=== PATIENT | female | born 1950 | race Caucasian/White ===

== ENCOUNTER 2019-11-01 11:42 | Emergency (ER) | payer MEDICARE, OTHER ==
[2019-11-01] MEDS: Albuterol/Ipratropium 3.0-0.5 MG/3 ML Neb Soln NEB ONE (11:53)
[2019-11-01 11:58] VITALS: BP 147/81
--- NOTE | 2019-11-01 12:12 | EDM.PDOC ---
ED HPI GENERAL MEDICAL PROBLEM - General Chief Complaint: General Stated Complaint: shortness of breath Time Seen by Provider: 11/01/19 12:02 Source of Information: Reports: Patient History Limitations: Reports: No Limitations - History of Present Illness INITIAL COMMENTS - FREE TEXT/NARRATIVE: Patient presents with dyspnea and wheezing. She has asthma and COPD and generally gets exacerbations any time she gets any cough or cold. She has DuoNeb at home and used it 4 times this morning. When she sees her PCP for exacerbations she is usually put on a short course of prednisone. She also had a refill on a Z-pack so she got one of those started yesterday at 1700. - Related Data Allergies Allergy/AdvReac Type Severity Reaction Status Date / Time codeine Allergy Giddiness Verified 11/01/19 11:58 propoxyphene HCl Allergy Cannot Verified 11/01/19 11:58 [From [place]] Remember Home Meds: Home Meds Modafinil [Provigil] 200 mg PO DAILY 10/10/14 [History] Albuterol/Ipratropium [DuoNeb 3.0-0.5 MG/3 ML] 3 ml NEB Q6HRRT PRN #60 neb 10/14 [Rx] Albuterol [Ventolin HFA] 2 puff INH Q4H PRN 11/01/19 [History] Denosumab [Prolia] 60 mg SUBCUT ASDIRECTED 11/01/19 [History] Fluticasone/Salmeterol [Advair 250-50 Diskus] 1 inh INH BID 11/01/19 [History] ED ROS GENERAL - Review of Systems Review Of Systems: See Below Constitutional: Denies: Fever, Chills, Malaise, Weakness HEENT: Denies: Ear Pain, Throat Pain, Throat Swelling, Vision Change Respiratory: Reports: Shortness of Breath, Wheezing, Cough Cardiovascular: Denies: Chest Pain, Lightheadedness, Syncope Endocrine: Denies: Fatigue GI/Abdominal: Denies: Abdominal Pain, Vomiting Musculoskeletal: Denies: Neck Pain, Shoulder Pain, Arm Pain, Back Pain, Hand Pain Skin: Denies: Cyanosis, Jaundice, Mottled, Pallor, Diaphoresis Neurological: Denies: Confusion, Dizziness, Headache, Seizure, Syncope, Trouble Speaking, Difficulty Walking Psychiatric: Denies: Agitation, Anxiety, Confusion ED EXAM, GENERAL - Physical Exam Exam: See Below Exam Limited By: No Limitations General Appearance: Alert, WD/WN, No Apparent Distress Eye Exam: Bilateral Eye: EOMI, Normal Inspection, PERRL Ears: Normal External Exam, Hearing Grossly Normal Nose: Normal Inspection, No Blood Throat/Mouth: Normal Inspection, Normal Lips, Normal Voice, No Airway Compromise Head: Atraumatic, Normocephalic Neck: Normal Inspection, Full Range of Motion Respiratory/Chest: No Accessory Muscle Use, Wheezing (some better after duoneb but still present in upper chest). No: Crackles, Rhonchi, Stridor Cardiovascular: Regular Rate, Rhythm, No Murmur GI/Abdominal: Soft, Non-Tender Back Exam: Normal Inspection, Full Range of Motion. No: CVA Tenderness (L), CVA Tenderness (R) Extremities: Normal Inspection, Normal Range of Motion Neurological: Alert, Oriented, Normal Cognition, No Motor/Sensory Deficits Psychiatric: Normal Affect, Normal Mood Skin Exam: Warm, Dry, Intact, Normal Color, No Rash Course - Vital Signs Last Recorded V/S: Last Vital Signs Temp 97.8 F 11/01/19 11:50 Pulse 94 11/01/19 12:27 Resp 26 H 11/01/19 11:50 BP 147/81 H 11/01/19 11:50 Pulse Ox 89 L 11/01/19 11:50 - Orders/Labs/Meds Orders: Active Orders 24 hr Category Date Time Status RT Aerosol Therapy [RC] ASDIRECTED Care 11/01/19 11:46 Active Meds: Medications Discontinued Medications Generic Name Dose Route Start Last Admin Trade Name Santiago PRN Reason Stop Dose Admin Albuterol/Ipratropium 3 ml 11/01/19 11:46 11/01/19 11:53 Duoneb 3.0-0.5 Mg/3 Ml NEB 11/01/19 11:47 3 ml ONETIME ONE Administration Methylprednisolone Sodium Succinate 125 mg 11/01/19 12:06 11/01/19 12:19 Solu-Medrol IM 11/01/19 12:07 125 mg ONETIME ONE Administration - Re-Assessments/Exams Free Text/Narrative Re-Assessment/Exam: 11/01/19 12:20 O2 sats are 89% after the duoneb but will have patient remove the paper mask and see if it improves. She feels much better and clinically is significantly better also. Pt says she thinks she is normally in the 90's when doing well. CXR shows no acute changes. Gave Solumedrol 125 mg IM. 11/01/19 12:34 CXR report is negative for pneumonia but shows COPD with a few scattered areas of scarring. Re-auscultation reveals fair air movement with no wheezing or crackles. Sats still in upper 80's. Will give her some oxygen while we wait for the Solu-medrol to take effect. 11/01/19 16:01 We put oxygen on for awhile with sats in mid to upper 90's. After removing oxygen sats dropped to 89-93%. I discussed with patient that we should admit her with supplemental oxygen until she can maintain on RA. Her has arrived now and they tell me that they have oxygen in their home from his mother who had COPD and lived with them for 7 years. They also have access to an oximeter. She does not want to be in the hospital. We discussed that she shouldn't set the oxygen level too high (not over 2 liters) or she could retain CO2. Her is a dentist and they appear to be able to meet her needs so this seems to be a reasonable option for the next couple days until she can get in to the clinic for further evaluation. Patient is stable at discharge. Departure - Departure Time of Disposition: 15:51 Disposition: Home, Self-Care 01 Condition: Good Clinical Impression: Asthma exacerbation in COPD, Hypoxemia - Discharge Information Forms: ED Department Discharge Additional Instructions: 1. Continue the DuoNebs as directed. 2. Continue the Z-pack course and take the prednisone as directed. 3. Use your home oxygen to maintain oxygen saturation from 94-99% ideally. 4. Follow up with PCP on Sunday for recheck and evaluation. 5. Return to ER as needed. Sepsis Event Note - Evaluation Sepsis Screening Result: No Definite Risk - Focused Exam Vital Signs: Vital Signs Temp Pulse Resp BP Pulse Ox 11/01/19 12:27 94 11/01/19 11:50 97.8 F 104 H 26 H 147/81 H 89 L Date Exam was Performed: 11/01/19 Time Exam was Performed: 15:51 - My Orders Last 24 Hours: My Active Orders 11/01/19 11:46 RT Aerosol Therapy [RC] ASDIRECTED - Assessment/Plan Last 24 Hours: My Active Orders 11/01/19 11:46 RT Aerosol Therapy [RC] ASDIRECTED
[2019-11-01] MEDS: methylPREDNISolone Sodium Succinate 125 MG/2 ML SDV IM ONE (12:19)
--- NOTE | 2019-11-01 12:26 | CR ---
[id number] RAD/RAD Chest PA And Lateral EXAM: RAD Chest PA And Lateral INDICATION: COUGH. COMPARISON: Radiograph from September 2014. CT from December 2013. DISCUSSION: Cardiomediastinal silhouette is normal in size and contour. Chronic obstructive pulmonary disease with few scattered areas of scarring. No infiltrate, effusion, pneumothorax, or edema. IMPRESSION: Negative for pneumonia or other acute cardiopulmonary findings. Rakan Guy MD 11/01/19 [id number] Thank you for allowing us to participate in the care of your patient.
[2019-11-01 12:36] VITALS: PULSE 94
[2019-11-01] MEDS: predniSONE 20 MG Tab PO ONE (16:15)
[2019-11-02] MEDS ORDERED: predniSONE 20 MG Tab PO SCH (08:00)
== END 2019-11-01 16:40 | disposition home or self-care (01) ==
LOC: KA.ED 11:42
DX: J44.9 Chronic obstructive pulmonary disease, unspecified (principal); J45.901 Unspecified asthma with (acute) exacerbation; Z88.5 Allergy status to narcotic agent; Z88.8 Allergy status to other drugs, medicaments and biological substances
CPT/HCPCS: 71046; 94640; 96372; 99284; 99285; A9270; J2930; J7620-GY

== ENCOUNTER 2022-04-15 07:29 | Emergency (ER) | payer MEDICARE, OTHER ==
[2022-04-15 07:44] VITALS: BP 168/96; PULSE 85
[2022-04-15] MEDS: Ondansetron 4 MG Tab.DIS PO ONE (08:08)
[2022-04-15] MEDS: Ondansetron 4 MG Tab.DIS ONE (08:28)
== END 2022-04-15 11:05 | disposition home or self-care (01) ==
LOC: KA.ED 07:29
DX: S32.010A Wedge compression fracture of first lumbar vertebra, initial encounter for closed fracture (principal); M48.36 Traumatic spondylopathy, lumbar region; R11.0 Nausea; K59.02 Outlet dysfunction constipation; J44.9 Chronic obstructive pulmonary disease, unspecified; Z88.5 Allergy status to narcotic agent; Z88.8 Allergy status to other drugs, medicaments and biological substances; Z87.891 Personal history of nicotine dependence
CPT/HCPCS: 72100; 74018; 99284; A9270-GY

== ENCOUNTER 2022-05-05 10:00 | Emergency (ER) | payer MEDICARE, OTHER ==
[2022-05-05 11:16] VITALS: BP 128/76; PULSE 78
== END 2022-05-05 11:52 ==
LOC: KA.ED 10:00
DX: M54.50 Low back pain, unspecified (principal); G89.29 Other chronic pain; R15.9 Full incontinence of feces; J44.9 Chronic obstructive pulmonary disease, unspecified; M81.0 Age-related osteoporosis without current pathological fracture; Z72.0 Tobacco use; Z88.5 Allergy status to narcotic agent; Z88.8 Allergy status to other drugs, medicaments and biological substances; Z79.899 Other long term (current) drug therapy
CPT/HCPCS: 74018; 99283; 99284

== ENCOUNTER 2023-08-14 19:56 | Emergency (ER) | payer MEDICARE, OTHER ==
[2023-08-14] MEDS: Sodium Chloride 0.9% 10 ML Syringe FLUSH PRN (20:23)
[2023-08-14 20:45] LABS: BASOPHILS ABSOLUTE AUTO 0.01 10^3/uL (0.00-0.10); BASOPHILS PERCENT AUTO 0.1 % (0.0-1.0); HEMATOCRIT 45.1 % (37.0-47.0); HEMOGLOBIN 14.5 g/dL (12.0-16.0); IMMATURE GRAN ABSOLUTE AUTO 0.01 10^3/uL (0.00-0.50); IMMATURE GRAN PERCENT AUTO 0.1 % (0.0-5.0); LYMPHOCYTES ABSOLUTE AUTO 0.41 10^3/uL (1.00-4.00); LYMPHOCYTES PERCENT AUTO 5.3 % (20.0-40.0); MEAN CORPUSCULAR HEMOGLOBIN 31.7 pg (27.0-31.0); MEAN CORPUSCULAR HGB CONC 32.2 g/dL (32.0-36.0); MEAN CORPUSCULAR VOLUME 98.5 fL (82.0-92.0); MEAN PLATELET VOLUME 9.3 fL (7.4-10.4); MONOCYTES ABSOLUTE AUTO 0.41 10^3/uL (0.10-0.80); MONOCYTES PERCENT AUTO 5.3 % (2.0-8.0); NEUTROPHILS ABSOLUTE AUTO 6.83 10^3/uL (2.50-7.00); NEUTROPHILS PERCENT AUTO 89.2 % (50.0-70.0); PLATELET COUNT,PLT 236 10^3/uL (150-400); RED BLOOD CELL COUNT 4.58 10^6/uL (3.80-5.50); RED CELL DISTRIBUTION WIDTH 12.5 % (11.5-14.5); WHITE BLOOD CELL COUNT,WBC 7.67 10^3/uL (5.00-10.00)
[2023-08-14 21:11] LABS: LACTIC ACID 1.5 mmol/L (0.4-2.0)
[2023-08-14 21:27] LABS: INFLUENZA A NAA NEGATIVE (NEGATIVE); INFLUENZA B NAA NEGATIVE (NEGATIVE); RESPIRATORY SYNCYTIAL VIR NAA NEGATIVE (NEGATIVE)
[2023-08-14 21:29] LABS: CORONAVIRUS COVID-19 NAA NEGATIVE (NEGATIVE)
[2023-08-14] MEDS: methylPREDNISolone Sodium Succinate 125 MG/2 ML SDV IVPUSH ONE (22:40)
[2023-08-14] MEDS: Sodium Chloride 0.9% 1,000 ML IV ONE (22:46)
[2023-08-14] MEDS: Metoprolol Tartrate 5 MG/5 ML SDV IVPUSH ONE (23:38)
[2023-08-15] MEDS: Albuterol/Ipratropium 3.0-0.5 MG/3 ML Neb Soln NEB PRN (02:03)
[2023-08-15] MEDS: LORazepam 2 MG/ML SDV IVPUSH ONE (03:36)
[2023-08-15 07:21] LABS: O2 DELIVERY DEVICE SIMPLE MASK; PCO2 ARTERIAL 49 mmHG (35-45); PH,ARTERIAL 7.32 (7.35-7.45); PO2 ARTERIAL 104 mmHG (80-105)
[2023-08-15 07:22] LABS: BASE EXCESS ARTERIAL -2 mmol/L (-2-3); BICARBONATE,ARTERIAL 24.7 mmol/L (22-26); O2 SATURATION ARTERIAL 97 % (95-98)
[2023-08-15 08:50] VITALS: BP 128/90; PULSE 100
== END 2023-08-15 10:20 | disposition hospice, home (50) ==
LOC: KA.ED 19:56
DX: J44.9 Chronic obstructive pulmonary disease, unspecified (principal); F17.200 Nicotine dependence, unspecified, uncomplicated; Z20.822 Contact with and (suspected) exposure to COVID-19; Z88.5 Allergy status to narcotic agent; Z79.899 Other long term (current) drug therapy; Z90.49 Acquired absence of other specified parts of digestive tract; Z90.710 Acquired absence of both cervix and uterus
CPT/HCPCS: 0241U; 36415; 36600; 71045; 82803; 83605; 83880; 84484; 85025; 85379; 87040; 93010; 94640; 96361; 96374; 96375; 99284; 99285-25; J2060; J2930; J3490; J7030; J7620-GY

== ENCOUNTER 2024-03-27 10:02 | Emergency (ER) | payer OTHER, MEDICARE ==
[2024-03-27 10:17] VITALS: BP 150/86; PULSE 97
== END 2024-03-27 10:54 | disposition home or self-care (01) ==
LOC: KA.ED 10:02
DX: S01.511A Laceration without foreign body of lip, initial encounter (principal); S90.511A Abrasion, right ankle, initial encounter; S70.312A Abrasion, left thigh, initial encounter; K08.531 Fractured dental restorative material with loss of material; M25.471 Effusion, right ankle; J44.9 Chronic obstructive pulmonary disease, unspecified; F17.210 Nicotine dependence, cigarettes, uncomplicated; Z90.49 Acquired absence of other specified parts of digestive tract; Z90.710 Acquired absence of both cervix and uterus; Z79.2 Long term (current) use of antibiotics; Z79.899 Other long term (current) drug therapy; Z79.51 Long term (current) use of inhaled steroids; Z91.030 Bee allergy status; Z88.5 Allergy status to narcotic agent; Z88.8 Allergy status to other drugs, medicaments and biological substances; W19.XXXA Unspecified fall, initial encounter
CPT/HCPCS: 73600-LT; 73600-RT; 99283

== ENCOUNTER 2024-07-31 10:50 | Emergency (ER) | payer MEDICARE, OTHER ==
[2024-07-31 12:00] VITALS: BP 146/100; PULSE 113
== END 2024-07-31 12:07 | disposition home or self-care (01) ==
LOC: KA.ED 10:50
DX: S80.11XA Contusion of right lower leg, initial encounter (principal); Z51.5 Encounter for palliative care; Z90.49 Acquired absence of other specified parts of digestive tract; Z90.710 Acquired absence of both cervix and uterus; Z79.51 Long term (current) use of inhaled steroids; Z79.899 Other long term (current) drug therapy; Z88.1 Allergy status to other antibiotic agents; Z88.5 Allergy status to narcotic agent; Z91.030 Bee allergy status; Z88.8 Allergy status to other drugs, medicaments and biological substances; W19.XXXA Unspecified fall, initial encounter; Y92.009 Unspecified place in unspecified non-institutional (private) residence as the place of occurrence of the external cause
CPT/HCPCS: 72170; 99284